=== PATIENT | female | born 1985 | race Caucasian/White ===

== ENCOUNTER 2020-07-13 17:09 | Emergency (ER) | payer OTHER ==
[~2020-07-13] VITALS: Ht 172.7 cm; Wt 93.0 kg
[2020-07-14] MEDS ORDERED: HYDROCODON-ACE1 EA10 PO (18:47)
== END 2020-07-13 22:48 | disposition home or self-care (01) ==
LOC: ED 17:09
DX: R10.2 Pelvic and perineal pain (principal); F17.200 Nicotine dependence, unspecified, uncomplicated
CPT/HCPCS: 76830; 76856; 80053; 81001; 83690; 84702; 85025; 96374; 99284-25; J1885; J7030

== ENCOUNTER 2020-07-14 17:54 | Inpatient (IN) | payer OTHER ==
[~2020-07-14] VITALS: Ht 172.7 cm; Wt 93.2 kg
--- NOTE | ~2020-07-14 | HP ---
[facility] [address], [place] [address] Draft ADMISSION DATE: 07/14/2020 CHIEF COMPLAINT: Fever and abdominal pain. HISTORY OF PRESENT ILLNESS: Ms. Schultz is a pleasant 35-year-old G3, P2-0-1-2 female who presents to the office today for ER followup. She is seen in the Urgent Care yesterday complaining of a 6-day history of waxing and waning fevers and increasing left adnexal pain. She was then sent to the emergency department where she underwent evaluation. An ultrasound was performed that demonstrated a 9.8 x 5.4 x 7.3 cm uterus with homogeneous features with endometrial thickness of 14 mm. Right ovary was normal. The left ovary was 3.9 x 2.2 x 3.8 cm with normal follicles. In the left fallopian tube, there was an anechoic fluid-filled structure measuring up to 2.3 cm in diameter with mural hyperemia with no internal echogenic material. Per the text report, this was the area of tenderness for the patient. She was afebrile with normal vital signs. No leukocytosis and generally normal labs. Quant hCG was negative. I offered evaluation in the emergency department and the ER physician felt that she could safely follow up in the office today. In reviewing records, I gained additional information and was concerned for TOA/PID and recommend the patient presents emergently for evaluation. In the office, the patient confirms 1-week history of waxing and waning fevers and increased pain. Denies vaginal discharge. The patient has not been sexually active for approximately five months and unsure of lifetime partners. History of HPV in the past but no other history of sexually transmitted diseases. GC and chlamydia testing were not performed in the emergency department yesterday. The patient also complains of five year history of abnormal uterine bleeding with regular periods lasting 5 to 7 days with extremely heavy bleeding and pain. She has clots and accidents through tampons and pads on to her bedding and clothing. She has not seen a museum assistant for at least three or four years. The patient reports a history of being diagnosed with cervical cancer and was told several years ago that she had "stage III or stage IV cervical cancer. She chose not to pursue followup and moved to [place], [place]. She has not seen a physician since. She does smoke hand rolled cigarettes at approximately 1/2 to 1 pack per day. PAST MEDICAL HISTORY: 1. Cervical cancer per the patient. 2. Chronic low back pain. CURRENT MEDICATION: [place] 5/325 per ED yesterday. PATIENT NAME: WILBERT SCHULTZ HISTORY AND PHYSICAL DATE OF : 85 REPORT #: [id number] PHYSICIAN: HALI MENDEZ DO PCP: HALI MENDEZ DO REPORT IS CONFIDENTIAL AND NOT TO BE RELEASED WITHOUT AUTHORIZATION [facility] [address] [place] [id number] Draft ALLERGIES: No known drug allergies. SURGICAL HISTORY: None. HOSPITALIZATIONS: No prior. FAMILY HISTORY: Reviewed and no pertinent family history. SOCIAL HISTORY: The patient smokes tobacco every day. Denies alcohol or drug use. Sexual activity per HPI. REVIEW OF SYSTEMS: Review of systems was performed, negative except per HPI. PHYSICAL EXAMINATION: VITAL SIGNS: Height 68 inches, weight 203 pounds. BMI 30.86. Pain 6/10. Heart rate 66 beats per minute. Blood pressure 118/78, respiratory rate 18, oxygen sat 99. GENERAL: The patient is alert, cooperative, oriented, in no distress. HEENT: Normocephalic, atraumatic with multiple piercings. NECK: Supple. Trachea midline. No thyromegaly, supraclavicular, suprascapular or other lymphadenopathy. CHEST: Normal shape and expansion. No apparent dyspnea. HEART: Regular rate and rhythm. No murmurs. RESPIRATORY: Clear to auscultation bilaterally. Regular rate and effort. No wheezes, rales, or rhonchi. ABDOMEN: Soft without hepatomegaly or splenomegaly. No obvious masses. No abdominal hernia. She does have significant left lower quadrant tenderness with guarding. No referred pain to the left lower quadrant with palpation to the quadrant. No rebound. BACK: Limited range of motion of her lumbar spine due to history of low back injury. Tender low back. Left flank tenderness to percussion. Female genitalia. Normal external genitalia with normal clitoris, urethral meatus bilateral [place]'s, and Bartholin glands. Normal perineal body and anus. Vagina is normal in caliber and length with no abnormal discharge. The cervix is quite large with extremely large squamocolumnar junction that appears hyperemic and dysplastic. Pap was performed as well as GC and chlamydia were obtained. Bimanual exam was performed, demonstrated no significant cervical motion tenderness. However, the cervix was quite firm and abnormal. No upper vaginal extension and the pelvic sidewalls and parametrium feel clear. Minimal tenderness of the right adnexa, but significant left adnexa 10/10 that reproduced her pain. Unable to palpate mass due to the patient's tenderness. PATIENT NAME: WILBERT SCHULTZ HISTORY AND PHYSICAL DATE OF : [birth year] REPORT #: [id number] PHYSICIAN: HALI MENDEZ DO PCP: HALI MENDEZ DO REPORT IS CONFIDENTIAL AND NOT TO BE RELEASED WITHOUT AUTHORIZATION [facility] [address], [place] [address] Draft RECTAL: Deferred. EXTREMITIES: No edema. The patient does walk with a cane. LABS: From ED yesterday, WBC 6.2, hemoglobin 13.7, platelets 254. CMP shows sodium 137, potassium 4.1, chloride 104, carbon dioxide 24, BUN 8, creatinine 0.61, glucose 87, AST 37, ALT 32. HCG negative. UA is negative. ASSESSMENT: 1. Left tubo-ovarian abscess. The patient with likely TOA with fluid-filled hyperemic left fallopian tube with complaint of fever and severe tenderness. Admission for parenteral antibiotics, close monitoring and pain control. Antibiotic will likely continue 48 to 72 hours and we will monitor clinical improvement largely based on symptomatic pain improvement. Should she fail IV antibiotic therapy, surgery may be indicated. We reviewed risk of rupture and resulting sepsis with possible morbidity and mortality. We reviewed indications for surgery. The patient understands and agrees to admission. I will start cefoxitin 2 g IV q.6 hours plus doxycycline 100 mg q.12 hours. We will manage pain with IV and oral pain medications including Tylenol, ibuprofen, [place] and Dilaudid as needed. Nicotine patch for tobacco. The patient is not interested in tobacco cessation. Recommended no reviewed hospital policy for COVID screen upon admission and the patient reports that she will refuse this. All questions were answered to best of my ability with the patient apparent satisfaction. 2. Cervical cancers. The patient with history of cervix cancer per report. On exam, she certainly has abnormal cervix with abnormal cervical mass concerning for early significant dysplasia. This mass greater than 2 cm, but does seem limited to the cervix proper with no spread to the upper vagina, parametrium, or pelvic sidewall. No regional or distant suspicious nodes. Pap was obtained today in the office and we will follow up as an outpatient with at least colposcopy and biopsies regardless of Pap results. Records were requested in the office for prior pathology reports management. We reviewed the role of HPV and tobacco and progression of cervical cancer. The patient understands and agrees. 3. Tobacco use. The patient with heavy tobacco use of home rolled cigarettes. Reviewed hospital policy for tobacco cessation counseling and offered nicotine patch, which the patient accepts. All questions were answered to best of my ability with patient's apparent satisfaction. Hali Mendez DO PATIENT NAME: WILBERT SCHULTZ HISTORY AND PHYSICAL DATE OF : [birth year] REPORT #: [id number] PHYSICIAN: HALI MENDEZ DO PCP: HALI MENDEZ DO REPORT IS CONFIDENTIAL AND NOT TO BE RELEASED WITHOUT AUTHORIZATION [facility] [address], [place] [address] Draft WOOD/SHAYNAL /[id number] Copies: ~ PATIENT NAME: WILBERT SCHULTZ HISTORY AND PHYSICAL DATE OF : [birth year] REPORT #: [id number] PHYSICIAN: HALI MENDEZ DO PCP: HALI MENDEZ DO REPORT IS CONFIDENTIAL AND NOT TO BE RELEASED WITHOUT AUTHORIZATION
--- NOTE | 2020-07-14 18:05 | NUR ---
PT ARRIVAL TO DEPARTMENT WITH DRAG DOWN, AMBULATING WITH CANE, HAS STEADY GAIT, DENIES DIZZINESS. PT TO ROOM 106.
--- NOTE | 2020-07-14 18:20 | NUR ---
IV STARTED, IV SL'D, L HAND 20G, PT TOLERATED WELL, PT SITTING UP IN BED ORDERED REGULAR DIET, DENIES DIZZINESS, N/V OR NEEDS.
--- NOTE | 2020-07-14 18:43 | NUR ---
RT COLLECTED COVID 19 SWAB WITH NO COMPLICATIONS. RT USED THE CEPHEID RAPID TEST THROUGH [facility] PER DR REQUEST AT THIS TIME.
--- NOTE | 2020-07-14 18:45 | NUR ---
DR. STOREY AT BEDSIDE TALKING WITH PT
[2020-07-14] MEDS ORDERED: HYDROCODON-ACE1 EA10 PO (18:47)
--- NOTE | 2020-07-14 18:50 | NUR ---
LABS DRAWN WITH IV START
--- NOTE | 2020-07-14 21:22 | NUR ---
pt appears to be sleeping soundly and in no apparent distress
--- NOTE | 2020-07-14 22:39 | NUR ---
pt resting. Denies any needs at this time and states that pain is improved.
--- NOTE | 2020-07-15 02:08 | NUR ---
scheduled abx hung. Pt denies need for pain medication at this time. Continues use of kpad to abdomen.
--- NOTE | 2020-07-15 04:48 | NUR ---
pt up to BR to void. Declines any pain medication at this time. Pt states that her back hurts but that is normal for her. Continues use of kpad to abdomen.
--- NOTE | 2020-07-15 05:43 | NUR ---
0545-1 boyce given for 11/18 lower abdominal disc.
--- NOTE | 2020-07-15 17:27 | NUR ---
0800 PT UP IN BED, NO NEEDS AT THIS TIME. VSS NO APPARENT SIGNS OF DISTRESS.
--- NOTE | 2020-07-15 17:28 | NUR ---
1010 PT UP IN BED EATING BREAKFAST, TOLERATES WELL.
--- NOTE | 2020-07-15 17:28 | NUR ---
0900 DR STOREY HERE TO DISCUSS PLAN OF CARE. PATIENT AGREEABLE AT THIS TIME.
--- NOTE | 2020-07-15 17:29 | NUR ---
1105 PT UP IN ROOM, DENIES NEEDS AT THIS TIME.
--- NOTE | 2020-07-15 17:29 | NUR ---
1215 PT RESTING, WATCHING TV. NO NEEDS INDICATED.
--- NOTE | 2020-07-15 17:30 | NUR ---
1310 PT UP AMBULATING IN ROOM, TOLERATES WELL.
--- NOTE | 2020-07-15 17:31 | NUR ---
1405 PT EATING LUNCH, TEXTING WITH FRIEND. NO NEEDS AT THIS TIME.
--- NOTE | 2020-07-15 17:31 | NUR ---
1600 PT DENIES NEEDS AT THIS TIME.
--- NOTE | 2020-07-15 17:32 | NUR ---
1730 PT ORDERS DINNER, WATCHING VIDEO'S ON PHONE.
--- NOTE | 2020-07-15 20:34 | NUR ---
2000-PM ASSESSMENT DONE. PT JUST UP TO BR TO VOID QS. IV ABX HUNG AND INFUSING PER ORDER. PT STATES SHE FEELS BETTER SINCE STARTING THE ABX. DENIES NEED FOR PAIN RX AT THIS TIME. NICORETTE GUM GIVEN PER PT REQUEST
--- NOTE | 2020-07-16 02:00 | NUR ---
0140- ABX hung and infusing per order. Pt mostly sleepy and denies need for pain rx at this time. IV site WNL
--- NOTE | 2020-07-16 05:42 | NUR ---
0530- pt resting with eyes closed. Left undisturbed.
--- NOTE | 2020-07-16 07:25 | NUR ---
Pt medicated w/ requested pain medication and nicotine gum. Fresh coffee provided.
--- NOTE | 2020-07-16 08:22 | NUR ---
Assessment done, Pt medicated w/ scheduled abx and nicotine patch. fresh coffee provided, no further needs voiced.
--- NOTE | 2020-07-16 10:23 | NUR ---
PT UP AROUND ROOM, NEW BAG OF NORMAL SALINE HUNG. BREAKFAST TRAY CLEARED. NO FURTHER NEEDS VOICED.
--- NOTE | 2020-07-16 12:48 | NUR ---
pt resting in bed. vss. additional nicotine gum provided. no further needs voiced.
--- NOTE | 2020-07-16 14:33 | NUR ---
pt medicated w/ requested pain medication, nicotine gum and scheduled abx. fresh towels and gown provided, pt reports she will shower. lunch tray cleared.
--- NOTE | 2020-07-16 16:16 | NUR ---
pt resting in bed. Vitals done. Fresh ice water provided. Pt denies any further needs at this time.
--- NOTE | 2020-07-16 16:26 | NUR ---
SPOKE WITH DR STOREY REGARDING MOVING PT TO MEDICAL FLOOR FOR CONTINUED IV THERAPY. ORDER TO GO AHEAD AND DO SO. [facility] NURSES AWARE.
--- NOTE | 2020-07-16 16:54 | NUR ---
SHIFT REPORT RECIEVED BY CELINA KATZ FROM [facility]. PT TRANSFERED TO MED SURG. VS STABLE. PT STATES PAIN 11/18. TOLERABLE. ASSESSMENT COMPLETE. INDEPENDENT. ACTIVE BOWEL TONES.
--- NOTE | 2020-07-16 17:21 | NUR ---
PATIENT IS SITTING UP IN BED. AT BEDSIDE. VITALS AND I&OS ARE DONE AND DOCUMENTED. CALL LIGHT IS IN REACH. NO FURTHER NEEDS AT THIS TIME.
--- NOTE | 2020-07-16 17:23 | NUR ---
CALLED DR STOREY REGARDING 14MG NICOTINE PATCH. PT WITH S/S OF ANXIETY AND AGITATION. ORDERS RECIEVED TO INCREASE NICOTINE PATCH TO 21MG DAILY. ORDERS READ BACK.
--- NOTE | 2020-07-16 18:56 | NUR ---
REMOVED 14MG NICOTINE PATCH FROM RIGHT SHOULDER. ADMINISTERED 21MG NICOTINE ON LEFT SHOULDER. PT ATE 100% OF MEAL. IV FLUIDS INFUSING 75ML/HR.
--- NOTE | 2020-07-16 19:20 | NUR ---
SHIFT REPORT RECEIVED FROM DAYSHIFT CELINA SPANGLER AND YVONNE AT BEDSIDE, pt AWAKE AND RESTING IN BED. INDEPENDENT IN ROOM, RECENTLY VOIDED. IV FLUIDS INFUSING PER MD ORDERS. NICOTINE GUM GIVEN BY CELINA SPANGLER, NO FURTHER NEEDS AT THIS TIME. CALL LIGHT IN REACH.
--- NOTE | 2020-07-16 20:06 | NUR ---
ROUNDED CHARGE. VITAL SIGNS COMPLETE, STABLE. pt REQUESTING PRN PAIN MEDICATIONS, CELINA BLEVINS IN ROOM. pt DENIES ADDITIONAL NEEDS, RESTING IN BED WATCHING TV. CALL LIGHT IN REACH.
--- NOTE | 2020-07-16 20:26 | NUR ---
ASSESSMENT COMPLETE, SCHEDULED MEDS GIVEN (SEE EMAR). pt AWAKE AND RESTING IN BED, COMPLIANT WITH CARE AND INTERACTIVE WITH FOOD EDITOR. IV ABX HUNG AND INFUSING PER MD ORDERS, IV SITE WNL. BRISK BLOOD RETURN NOTED. PRN NORCO GIVEN FOR 6/10 PAIN R/T ABD CRAMPING. DENIES NAUSEA. NO FURTHER NEEDS, CALL LIGHT IN REACH. VS AND I&O'S COMPLETE AND STABLE.
--- NOTE | 2020-07-16 23:22 | NUR ---
NEW BAG IV FLUIDS HUNG, NS INFUSING AT 75MLS/HR, SITE WNL. TIOLET HAT EMPTIED, NO FURTHER NEEDS VERBALIZED. CALL LIGHT IN REACH.
--- NOTE | 2020-07-17 01:28 | NUR ---
pt RESTING IN BED WITH EYES CLOSED, RR EVEN AND UNLABORED. NO DISTRESS OR SIGNS OF PAIN NOTED. WILL CONTINUE TO MONITOR, CALL LIGHT IN REACH.
--- NOTE | 2020-07-17 02:08 | NUR ---
IV ABX HUNG AND INFUSING PER MD ORDERS, IV SITE WNL. pt RESTING IN BED WITH EYES CLOSED. RR EVEN AND UNLABORED. CALL LIGHT IN REACH.
--- NOTE | 2020-07-17 05:26 | NUR ---
ASSESSMENT COMPLETE, NO NEW CHANGES OR CONCERNS. pt AWOKE TO VOICE, REPORTS 6/10 PAIN, PRN MOTRIN GIVEN (SEE EMAR). DENIES NAUSEA, NICOTINE GUM PROVIDED PER pt REQUEST. NO ADDITIONAL NEEDS VERBALIZED, IV FLUIDS INFUSING PER MD ORDERS. IV SITE WNL. CALL LIGHT IN REACH. VS AND I&O'S COLLECTED BY VALDEMAR CASTRO.
--- NOTE | 2020-07-17 06:19 | NUR ---
CALL LIGHT ANSWERED. pt SPILLED WATER, CLEANED UP WITH TOWELS. NEW WATER CUP PROVIDED WITH ICE WATER. pt EMOTIONAL, CRYING. DISCUSSING WITH THIS RN CONCERNS FOR MOVING FORWARD, POTENTIAL SURGERY, HAVING TWO DAUGHTERS AT HOME A SINGLE MOM. pt IS REQUESTING SOMETHING FOR ANXIETY. DENIES PAIN MEDICATION AT THIS TIME "I JUST WOKE UP AND WOULD LIKE TO WAIT A WHILE". PRIMARY RN NOTIFIED OF pt CONCERNS, REQUESTS. BP REASSESSED, 101/76 (81). CALL LIGHT IN REACH.
--- NOTE | 2020-07-17 06:39 | NUR ---
pt AWAKE AND IN BED, TEARFUL AND REPORTS FEELINGS OF ANXIETY REGARDING HOSPITALIZATION/DIAGNOSIS. UPDATED DR STOREY REGARDING pt CONDITION, TELEPHONE ORDER READ BACK FOR 25MG [place] ONE TIME DOSE TO GIVE NOW. ORDER PLACED IN EMAR.
--- NOTE | 2020-07-17 07:14 | NUR ---
PT SITTING UP IN BED. SHIFT REPORT RECIEVED BY RN. CALL LIGHT IN REACH.
--- NOTE | 2020-07-17 08:01 | NUR ---
PT SITTING UP IN BED. SCHEDULED MEDS GIVEN. PT C/O PAIN 10/19. PRN PAIN MED GIVEN PER REQUEST. ASSESSMENT COMPLETE. NICOTINE PATCH REPLACED. CALL LIGHT IN REACH.
--- NOTE | 2020-07-17 08:51 | NUR ---
PT C/O NAUSEA. ZOFRAN ADMINISTERED. DR STOREY IN ROOM. STATES THAT HE WILL RETURN SHORTLY. CALL LIGHT IN REACH.
--- NOTE | 2020-07-17 09:32 | NUR ---
PATIENT IS SITTING UP IN HER CHAIR WATCHING TV ON HER TABLET. FRESH ICE WATER OFFFERED. CALL LIGHT IS IN REACH. NO FURTHER NEEDS AT THIS TIME.
[2020-07-17] MEDS ORDERED: FLAGYL500 MG PO (09:36)
[2020-07-17] MEDS ORDERED: DOXYCYCLINE HY100 MG PO (09:37)
[2020-07-17] MEDS ORDERED: HYDROCODON-ACE1 EA10 PO (09:39)
[2020-07-17] MEDS ORDERED: IBUPROFEN800 MG PO (09:41)
--- NOTE | 2020-07-17 10:07 | NUR ---
ORDERS RECIEVED BY MD FOR DISCHARGE. PAPERWORK READY. PHARMACY IN ROOM. PT STATES THAT SHE WILL BE DRIVING HERSELF HOME.
--- NOTE | 2020-07-17 10:49 | NUR ---
PT WAS GIVEN DISCHARGE PAPERWORK. EDUCATION GIVEN OF WHEN TO SEE MD FOR THE NEXT FOLLOW UP, S/S TO WATCH FOR AND DIAGNOSIS. PT VERBALIZED UNDERSTANDING. PT STATES THAT SHE UNDERSTANDS ALL MEDICATIONS AND SIDE EFFECTS. DOES NOT HAVE FURTHER QUESTIONS. IV REMOVED, CATH INTACT. EDUCATION GIVEN TO PT ON HOW SHE SHOULD WAIT 4HRS TO LEAVE DUE TO NARCOTIC BEING GIVEN 2 HOURS AGO. PT REFUSED AND STATES THAT SHE UNDERSTANDS BUT WOULD LIKE TO LEAVE NOW. AMA PAPERWORK GIVEN. PT VERBALIZED UNDERSTANDING ON THE RISKS THAT COULD OCCUR WHILE DRIVING ON HER OWN.
--- NOTE | 2020-07-17 15:03 | NUR ---
Attempted to see pt x 2 she was in the shower and then speaking with [facility]. When I returned she had dischargbed.
== END 2020-07-17 10:35 | disposition home or self-care (01) | DRG 759 ==
LOC: FBC 17:54 → MS 07-16 16:45
PROVIDERS: ADMIT Obstetrics & Gynecology; ATTEND Obstetrics & Gynecology
DX: N70.93 Salpingitis and oophoritis, unspecified (principal); Z20.822 Contact with and (suspected) exposure to COVID-19; F17.210 Nicotine dependence, cigarettes, uncomplicated; G89.29 Other chronic pain; M54.5 Low back pain; C53.9 Malignant neoplasm of cervix uteri, unspecified
CPT/HCPCS: 36415; 80053; 83605; 85025; 99406; C9803; J0694; J2405; J7030; Q0177; U0003

== ENCOUNTER 2021-02-12 20:09 | Inpatient (IN) | payer OTHER ==
[~2021-02-12] VITALS: Ht 172.7 cm; Wt 89.5 kg
[~2021-02-12 20:09] MED LIST: DOXYCYCLINE HY100 MG PO; FLAGYL500 MG PO; HYDROCODON-ACE1 EA10 PO; IBUPROFEN800 MG PO
--- NOTE | 2021-02-13 02:34 | NUR ---
INITIAL ASSESSMENT COMPLETED. PT RESPONDS TO TOUCH BUT NOT VOICE. LAYING ON LEFT SIDE, FIGHTS AGAINST THIS RN, WHEN TRYING TO CONCRETE BATCH PLANT OPERATOR IV FLUIDS AND ON AWAKE COUNSELOR. MOANING AND THRASHING WHEN MOVED IN BED. PRN HALDOL GIVEN AT THIS TIME (SEE EMAR). HEART RATE 270=287 WITH MOVEMENT, INTO THE 90S WHEN RESTING. SPO2 = 98% ON ROOM AIR. RESPIRATIONS EVEN AND UNLABORED. BLOOD PRESSURES WNL. SHARMA CATHETER DRAINING CLEAR YELLOW URINE. IV ABX INFUSING, PRN TYLENOL GIVEN FOR FEVER. BOYFRIEND AT BEDSIDE. BED ALARM IN PLACE. WILL CONTINUE TO CLOSELY MONITOR.
--- NOTE | 2021-02-13 03:35 | NUR ---
PT CONT TO REST IN BED WITH BOYFRIEND AT BEDSIDE. HR 100-105. VANCO COMPLETED AND IVF INFUSING.
--- NOTE | 2021-02-13 04:17 | NUR ---
pt rolled onto back. pulled off leads. replaced leads at this time. heart rate 90s. spo2 =98 percent. lung sounds remain unchanged. iv fluids infusing. will continue to monitor.
--- NOTE | 2021-02-13 05:23 | NUR ---
lab in room to draw blood
--- NOTE | 2021-02-13 05:59 | NUR ---
PT MORE RESPONSIVE, ANSWERING SOME QUESTIONS. STATES " IM COLD." AND "I HAVE A HEADACHE" ATTEMPTING TO FOLLOW SOME COMMANDS, BUT DRIFTS OFF TO SLEEP.
--- NOTE | 2021-02-13 06:55 | NUR ---
PTS BOYFRIEND CALLS TO STATE PT HAS BEEN CRYING ABOUT CATHETER, PT CRYING STATING "PLEASE TAKE IT OUT, I HAVE TO PEE, PLEASE TAKE IT OUT." CALL TO DR PLACIDO CAMPBELL MD TO REPORT MG LEVEL THIS AM AND PT PAIN WITH CATHETER. ORDER GIVEN FOR MG REPLACEMENT AND DC CATHETER. CATHETER DCD WITH 10CC WATER OUT OF BALLOON INTACT, PT CALMS AND SETTTLES DOWN BACK TO SLEEP.
--- NOTE | 2021-02-13 07:24 | NUR ---
IN TO START MAGNESIUM, PT IS CRYING WITH 10/10 HEAD PAIN, STATES SHE HAS A HISTORY OF SPINAL MENINGITIS AND THIS FEELS THE SAME. 15MG IV TORADOL GIVEN, PT THEN C/O NAUSEA, 4MG IV ZOFRAN GIVEN. CALL TO DR CAMPBELL TO UPDATE HIM, ADDITOINAL DOSE OF TORADOL ORDERED AND PLAN FOR LUMBAR PUNCTURE.
--- NOTE | 2021-02-13 07:29 | NUR ---
WARP KNITTING MACHINE OPERATOR NOTIFIED OF ORDER FOR LUMBER PUNCTURE.
--- NOTE | 2021-02-13 08:01 | NUR ---
PATIENT ASSESSMENT COMPLETE. MEDICATIONS GIVEN ORDERED. PATIENT IS ALERT AND ORIENTED X3. PATIENT PUPILS ARE REACTIVE AND 3MM IN SIZE. PATIENT COMPLAINS OF A 9/10 HEADACHE THAT SHE FEELS BEHIND HER EYES. PATIENT LUNG SOUNDS ARE CLEAR THROUGHOUT. BREATHING ARE UNLABORED AND EQUAL. RR IS 20. HEART SOUNDS ARE WNL AND PATIENT IS IN A SINUS RHYTHM. 65 BPM. PATIENT HAS NOT HAD ANY URINE SINCE SHARMA CATH WAS DC'D THIS MORNING. NO BM THIS MORNING BOWEL SOUNDS ARE ACTIVE. PATIENT DENIES FEELING HUNGRY. FEVER IS 99.9 AND SHE STATES "I AM SO COLD." PATIENT UPDATED ON PLAN OF CARE. BOYFRIEND AT BEDSIDE. NO QUESTIONS AT THIS TIME. CALL LIGHT WITHIN REACH NO FUTHER NEEDS.
--- NOTE | 2021-02-13 08:45 | NUR ---
PATIENT NEEDED IV SITE DC'D. TWO IV SITES PLACED. D5LR RUNNING AT 100 MLS/HR. PATIENT TOLERATED IT WELL. PATIENT STATES " I AM STARTING TO FEEL BETTER BUT STILL HAVE A HEADACHE. BOYFRIEND AT BEDSIDE. CALL LIGHT WITHIN REACH NO FUTHER NEEDS.
--- NOTE | 2021-02-13 11:09 | NUR ---
MED REC COMPLETE
--- NOTE | 2021-02-13 11:56 | NUR ---
PATIENT ASSESSMENT COMPLETE. MEDICATION GIVEN ORDERED. PATIENT IS SITTING UP IN BED. PATIENT IS ALERT AND ORIENTED X4. PUPILS ARE EQUAL AND REACTIVE. PATIENT LUNG SOUNDS ARE CLEAR THROUGHOUT. BREATHING IS EQUAL AND UNLABORED. RR IS 18. OXYGEN SATURATION IS 98% ON ROOM AIR. HEART SOUNDS ARE WNL. HEART RATE IS 67 BPM AND IN A SINUS RYHTHM. URINE OUTPUT IS YELLOW AND CLEAR. NO BM TODAY. BOWEL TONES ARE ACTIVE. PATIENT DENIES PAIN AT THIS TIME. PATIENT UPDATED ON PLAN OF CARE. NO QUESTIONS AT THIS TIME. BOYFRIEND PRESENT AT BEDSIDE. CALL LIGHT WITHIN REACH NO FUTHER NEEDS.
--- NOTE | 2021-02-13 13:45 | NUR ---
PATIENT USED CALL LIGHT TO REQUEST PAIN MED FOR HEADACHE. RN NOTIFIED. CALL LIGHT IN REACH. YENIED IN ROOM
--- NOTE | 2021-02-13 15:30 | NUR ---
LUMBAR PUNCTURE COMPLETE. PATIENT TOLLERATED IT WELL. [place] COMPLETED. PATIENT COMPLAINS OF 10/10 PAIN IN THE HEAD AND NECK. PATIENT IS LAYING FLAT IN BED. CALL LIGHT IN REACH NO FUTHER NEEDS.
--- NOTE | 2021-02-13 15:55 | NUR ---
PATIENT ASSESSMENT COMPLETE. MEDICATIONS GIVEN ORDERED. PATIENT IS ALERT AND ORIENTED X4. PATIENT LUNG SOUNDS ARE CLEAR THROUGHOUT. BREATHING IS EQUAL AND UNLABORED. RR IS 14. PATIENT HEART SOUNDS ARE WNL. HEART RATE IS 68 BPM AND IN SINUS RHYTHM. URINE OUTPUT IS YELLOW AND CLEAR. NO BM TODAY AND BOWEL TONES ARE ACTIVE. PATIENT STILL IS IN 10/10 PAIN FROM THE HEAD AND NECK. PRN TYLENOL GIVEN. PATIENT IS LAYING FLAT IN BED WITH THE LIGHTS OFF. PATIENT IS UPDATED ON PLAN OF CARE. NO QUESTIONS AT THIS TIME. CALL LIGHT WITHIN REACH NO FUTHER NEEDS.
--- NOTE | 2021-02-13 16:07 | NUR ---
STAFF SUGGESTS TALKING WITH PATIENT TOMORROW SHE IS TOO ILL FOR PHONE CONVERSATION TODAY.
--- NOTE | 2021-02-13 17:35 | NUR ---
DR. CAMPBELL UPDATED ON PATIENT LAB RESULTS THAT ARE RECIEVED. PATIENT IS IN 10/10 PAIN IN THE HEAD AND NECK. PATIENT IS LAYING FLAT IN BED. ORDERS PENDING. CALL LIGHT WITHIN REACH OF PATIENT NO FUTHER NEEDS.
--- NOTE | 2021-02-13 19:30 | NUR ---
REPORT RECEIVED FROM DAY SHIFT RN. PT IN ROOM WITH BOYFRIEND, NO REQUESTS AT THIS TIME.
--- NOTE | 2021-02-13 19:51 | NUR ---
IN TO DO ASSESSMENT AND VS. PT RATES PAIN IN HEAD AND NECK 08/19 BUT STATES OVERALL IT IS MUCH BETTER. LUNGS DIM/CLEAR. IVF INFUSING AT 100ML/HR.
--- NOTE | 2021-02-13 20:50 | NUR ---
IN TO START IV VANCO. DISCUSSED PLAN OF CARE FOR THE NIGHT WITH PT. PT HAS QUESTIONS CONCERNING LAB RESULTS FROM TO DAY, WILL INFORM DR. SKY PEREZ, DIRECTOR OF INVESTIGATIONS NOTED.
--- NOTE | 2021-02-13 21:07 | NUR ---
PT REQUESTING NICORETTE GUM. WILL LOOK INTO THE MATTER.
--- NOTE | 2021-02-13 21:13 | NUR ---
PTS LAB RESULTS REPORTED TO HER.
--- NOTE | 2021-02-13 22:00 | NUR ---
NICORETTE GIVEN TO PT, AND LATER SHE REPORTS FEELING RELIEF.
--- NOTE | 2021-02-14 02:00 | NUR ---
PT CALLED TO ASK FOR MOTIRIN, IN TO GIVE PILLS TO PT AND FOUND HER VOMITTING INTO GARBAGE CAN. HELD MOTRIN AND 4MG IV ZOFRAN GIVEN. SHE FINISHED VOMITING AND LAID BACK DOWN IN BED, STATED SHE WILL CALL IF NAUSEA DOES NOT GET BETTER.
--- NOTE | 2021-02-14 04:04 | NUR ---
IN TO CHECK ON PT, SHE STATES SHE FEELS A LITTLE LESS NAUSEATED, BUT DID HAVE ANOTHER EMESIS APPROX 10 MINUTES AGO AND THAT SHE HAS BEEN HAVING A HARD TIME SLEEPING BECAUSE OF IT. PT IS DIAPHORETIC/CLAMMY. ORAL TEMP IS 98.7. 12.5 MG IV PHENERGAN GIVEN. PT INSTRUCTED ON MEDICATION AND WILL CALL IF SHE DOESNT FEEL BETTER SOON.
--- NOTE | 2021-02-14 04:15 | NUR ---
12.5MG IV PHENERGAN GIVEN FOR CONTINUED NAUSEA.
--- NOTE | 2021-02-14 05:00 | NUR ---
PT RESTFUL, RESP EVEN AND UNLABORED.
--- NOTE | 2021-02-14 06:30 | NUR ---
PT CONTINUES TO BE SLEEPING/RESTFUL WITH EVEN UNLABORED RESP. RR 16, HR 80'S.
--- NOTE | 2021-02-14 07:00 | NUR ---
IV PUMP INDICATES DISTAL OCCLUSION. UPON IRRIGATION OF IV SITE, UNABLE TO IRRIGATE. IVF TO OFF FOR NOW. WILL RESTART IV LATER. PATIENT IS AWARE.
--- NOTE | 2021-02-14 08:35 | NUR ---
20 GA IV STARTED TO R HAND. PATIENT TOLERATED IV START WELL. IVF NOW INFUSING.
--- NOTE | 2021-02-14 09:17 | NUR ---
PATIENT ASSESSMENT COMPLETE. MEDICATIONS GIVEN ORDERED. PATIENT IS ALERT AND ORIENTED X4. LUNG SOUNDS ARE CLEAR THROUGHOUT. BREATHING IS EQUAL AND UNLABORED. OXYGEN SATURATION WAS 100% ON ROOM AIR. RR IS 20. PATIENT HEART RATE IS 85 BPM AND IN SINUS RHYTHM. HEART SOUNDS ARE WNL. PATIENT URINE IS YELLOW AND CLEAR. NO BM TODAY. PATIENT SAYS HER HEAD IS A 5/10 PAIN RESTING BUT IF SHE MOVES HER HEAD AND NECK IT IS 10/10. PATIENT TEMP IS 99.4. WILL CONTINUE TO MONITOR. MOTRIN GIVEN THIS AM. ASKED PATIENT IF WANTED ANY TYLENOL AND REFUSED AT THIS TIME. PATIENT IS DIAPHORETIC AND REQUESTING NICTONE GUM. PATIENT UPDATED ON PLAN OF CARE. BOYFRIEND PRESENT IN ROOM CALL LIGHT WITHIN REACH NO FUTHER NEEDS.
--- NOTE | 2021-02-14 11:00 | NUR ---
PT ARRIVED TO THE MEDSURG FLOOR FROM THE CCU VIA BED. PT C/O 10/10 PAIN IN NECK AND HEAD, PRN PAIN AND NAUSEA MEDS GIVEN PER PT REQUEST/PROVIDER ORDER. ASSESMENT COMPLETE, PT DENIES ANY OTHER NEEDS AT THIS TIME.
--- NOTE | 2021-02-14 11:00 | NUR ---
PATIENT WAS TRANSFERRED TO THE MEDICAL SURGICAL FLOOR. REPORT GIVEN TO CELINA HOWARD. PATIENT WAS MOVED BY CHAIR TO THE FLOOR. MASK ON. PATIENT DENIED ANY PAIN WITH MOVE. BREATHING WAS EQUAL AND UNLABORED. PATIENT TOLERATED MOVE WELL.
--- NOTE | 2021-02-14 12:30 | NUR ---
PT SITTING UP IN BED W/ CALL LIGHT IN REACH AND S.O. AT BEDSIDE. PT OFFERED COVID SWAB, PT STATES SHE WOULD LIKE TO THINK ABOUT IT. IV VANCO HUNG AND INFUSING PER PROVIDER ORDER. PT DENIES ANYOTHER NEEDS AT THIS TIME.
--- NOTE | 2021-02-14 13:44 | NUR ---
PATIENT REFUSED TO HAVE A COVID SWAB.
--- NOTE | 2021-02-14 14:27 | NUR ---
PT RESTING IN BED SAFELY W/ CALL LIGHT IN REACH AND EYES CLOSED, RR EVEN AND UNLABORED.
--- NOTE | 2021-02-14 16:37 | NUR ---
PT RESTING SAFELY IN BED W/ CALL LIGHT IN REACH AND EYES CLOSED, RR EVEN AND UNLABORED. SO IN ROOM ASLEEP ON THE COUCH
--- NOTE | 2021-02-14 18:07 | NUR ---
PT RESTING IN BED SAFELY W/ CALL LIGHT IN REACH, PT HAS DINNER IN ROOM BUT WANTS TO WAIT TO EAT SHE IS STILL SLIGHTLY NAUSEOUS.
--- NOTE | 2021-02-14 19:15 | NUR ---
RECEIVED REPORT ON PT, CALL LIGHT IS CLOSE.
--- NOTE | 2021-02-14 21:05 | NUR ---
IN ROOM TO ASSESS PT AND ADMINISTER MEDICATIONS. PT REPORTS PAIN 9/10 IN HEAD AND NECK. ADMINISTERED 10MG OXYCODONE. PT REPORTS NAUSEA AND LIGHT SENSITIVITY. TOO SOON TO ADMINISTER ZOFRAN AND NOT WANTING TO RISK LOOSING L HAND IV BY ADMINISTERING PHENERGAN. PT WOULD LIKE TO SHOWER AFTER IV ABX ARE COMPLETE. PT DENIES FURTHER NEEDS AND CALL LIGHT IS CLOSE.
--- NOTE | 2021-02-14 22:00 | NUR ---
ROTATED PT ANTIBIOTIC. PT MOSTLY SLEEPY, TURNED. NO OTHER NEEDS AT THIS TIME. FRIEND AT BEDSIDE.
--- NOTE | 2021-02-14 23:29 | NUR ---
PT IS RESTING WITH EYES CLOSED, RR IS EVEN AND NONLABORED. CALL LIGHT IS CLOSE. BOYFRIEND IN ROOM.
--- NOTE | 2021-02-15 00:04 | NUR ---
PATIENT IS NOW SL. PATIENT PROVIDED WITH TOWELS AND SOAP TO SHOWER. IV COVERED. PATIENT IS NOW IN SHOWER.
--- NOTE | 2021-02-15 01:30 | NUR ---
PT IS RESTING WITH EYES CLOSED, RR IS EVEN AND NONLABORED. CALL LIGHT IS CLOSE. SIG OTHER SLEEPING IN ROOM.
--- NOTE | 2021-02-15 03:33 | NUR ---
PT IS RESTING WITH EYES CLOSED, RR IS EVEN AND NONLABORED. CALL LIGHT IS CLOSE.
--- NOTE | 2021-02-15 04:35 | NUR ---
IN ROOM TO START IV ABX. PT REPORTS PAIN 3/10 HEADACHE WITH VERY LITTLE STIFFNESS IN HER NECK. SHE DENIES NEED FOR PAIN MEDS AND DENIES NAUSEA. PT'S SIG OTHER IS IN THE ROOM AND IS VERY HELPFUL WITH HER CARE. FRESH ICE AND ICEWATER PROVIDED. PT DENIES FURTHER NEEDS AT THIS TIME. CALL LIGHT IS CLOSE AND IV IS INFUSING FINE.
--- NOTE | 2021-02-15 05:01 | NUR ---
AFTER LEAVING PT'S ROOM SHE CALLED TO SAY HER HEADACHE IS BACK AT 9/10 AND FEELS NAUSEOUS. ADMINISTERED IV ZOFRAN SLOW PUSH AND DILUTED AND 10MG PO OXYCODONE FOR PAIN. PT DENIES FURTHER NEEDS AT THIS TIME. CALL LIGHT IS CLOSE.
--- NOTE | 2021-02-15 06:00 | NUR ---
WAS NOTIFIED BYBECKY RN THAT PT'S IV INFILTRATED, IT PREVIOUSLY HAD GREAT BLOOD RETURN WHEN STARTING IV VANCO AND PT STATED SHE COULD "TASTE THE SALINE". RN WILL USE US TO START MIDLINE. THIS RN SENT NOTE TO DR CAMPBELL TO NOTIFY HIM OF PT REPORTING NAUSEA AND INCREASED HEADACHE AFTER VANCO STARTED.
--- NOTE | 2021-02-15 06:08 | NUR ---
WAS UNABLE TO SEE PATIENT YESTERDAY WHEN CHECKED ON. PATIENT WAS NAUSEATED AND HAD SEVERE HEADACHE. ANOTHER TIME WAS SLEEPING. WILL TRY TO SEE TODAY.
--- NOTE | 2021-02-15 08:00 | NUR ---
Pt resting safely in bed w/ call light in reach and eyes closed, RR even and unlabored, SO at bedside.
--- NOTE | 2021-02-15 10:00 | NUR ---
PT RESTING IN BED SAFELY W/ CALL LIGHT IN REACH PT C/O 12/19 PAIN IN HEAD AND NECK, PRN TYLENOL GIVEN PER REQUEST, IV ABX HUNG AND INFUSING PER PROVIDERS ORDERS, MORNING ASSESMENT COMPLETED. PT GIVEN SPRITE UPON REQUEST, DENIES ANY OTHER NEEDS AT THIS TIME.
--- NOTE | 2021-02-15 10:50 | NUR ---
PT C/O NAUSEA, SMALL AMOUNT OF EMESIS. PRN ZOFRAN GIVEN PER REQUEST.
--- NOTE | 2021-02-15 12:30 | NUR ---
PT RESTING IN BED SAFELY, STATES NAUSEA HAS IMPROVED W/ PRN ZOFRAN, IV VANCO HUNG AND INFUSING PER PROVIDER ORDERS
--- NOTE | 2021-02-15 14:00 | NUR ---
PT RESTNG AT THIS TIME, CALL LIGHT IN REACH, EYES CLOSED, RR EVEN AND UNLABORED
--- NOTE | 2021-02-15 16:00 | NUR ---
PT REPORT NAUSEA AND EMESIS, EMESIS BAG IN GARBAGE MINIMAL EMESIS NOTED. PT DENIES NEED FOR NAUSEA MEDS JUST ASKS FOR SPRITE AND ICE CHIPS
--- NOTE | 2021-02-15 16:04 | NUR ---
STAFF STATES PATIENT IS NOT UP TO PHONE CALLS. CLEARANCE CENTER MANAGER STATES PATIENT PLANS TO GO HOME AT DISCHARGE WITH BOYFRIEND. STATES PATIENT AND HE DENY NEEDS TO DISCHARGE SAFELY HOME. WILL TRY TO SEE TOMORROW IF UP TO VISIT.
--- NOTE | 2021-02-15 18:00 | NUR ---
LAB IN ROOM ATTEMPTING TO DRAW BLOOD, UNSUCESSFUL, CHARGE NURSE YVONNE ABLE TO DRAW LABS AND SEND
--- NOTE | 2021-02-15 19:22 | NUR ---
RECEIVED REPORT FROM CELINA HOWARD. DID NOT ENTER ROOM DUE TO PRECAUTIONS.
--- NOTE | 2021-02-15 21:03 | NUR ---
IN TO DO ASSESSMENT. pt DENIES NAUSEA AND PAIN AT THIS TIME. SPINAL TAP SITE ASSESSED, TENDER, NO REDNESS OR SWELLING NOTED, BANDAID CDI. MIDLINE FLUSHES WELL, IV INFUSING. LUNGS CLEAR. pt REQUESTS FOOD. BOYFRIEND AT BEDSIDE. CALL LIGHT WITHIN REACH.
--- NOTE | 2021-02-15 21:40 | NUR ---
MAREPKAYE COMPLETED, LENYO STARTED, SLOWED PER pt REQUEST. pt DENIES PAIN AND NAUSEA AT THIS TIME. CALL LIGHT WITHIN REACH.
--- NOTE | 2021-02-15 22:11 | NUR ---
ROUNDED ON pt. REPORTED BURNING IN IV SITE. FLUSHES WELL, BLOOD RETURN NOTED. RUNNING CONCURRENT WITH SALINE. pt REPORTS THE BURNING IS DECREASED. pt VOIDED LIGHT YELLOW URINE. NO PAIN OR NAUSEA AT THIS TIME. CALL LIGHT WITHIN REACH.
--- NOTE | 2021-02-16 00:11 | NUR ---
IV INFUSION COMPLETED. pt PREPPED TO SHOWER INDEPENDENTLY. BOYFRIEND AT BEDSIDE. CALL LIGHT WITHIN REACH.
--- NOTE | 2021-02-16 05:00 | NUR ---
IN TO GIVE MEDICATION. pt WOKE TO VOICE. REPORTED HAVING SLEPT WELL AFTER SHOWER. REPORTED A "MILD" HEADACHE PRN GIVEN, ASKED FOR ORAL PAIN MEDICATION GIVEN. INFUSION STARTED. pt REPORTS SHE PLANS TO GO HOME TODAY WILL FINISH THIS DOSE OF ANTIBIOTICS FIRST. EDUCATED ON IMPORTANCE OF FINISH ANTIBIOTIC COURSE. pt AGREEABLE TO STAY UNTIL DAYSHIFT ARRIVES. CALL LIGHT WITHIN REACH.
--- NOTE | 2021-02-16 06:11 | NUR ---
CALL LIGHT ON. IV PUMP BEEPING, ERROR RESOLVED. pt REPORTED "I JUST FEEL A LOT WORSE." DISCUSSED TREATMENT OPTIONS. ICE PACK GIVEN. IV INFUSION SLOWED PER pt REQUEST. RASH NOTED BILAT TO KNEES NO OTHER AREAS NOTED ON ASSESSMENT OF SKIN. CALL LIGHT WITHIN REACH.
--- NOTE | 2021-02-16 06:52 | NUR ---
CALL LIGHT ON. PUMP BEEPING, ERROR RESOLVED. pt REPORTED THAT THE ICE PACK HAS GREATLY IMPROVED HER HEADACHE. CALL LIGHT WITHIN REACH.
--- NOTE | 2021-02-16 07:42 | NUR ---
Patient resting in bed awake, alert and oriented x4. Patient reports she has no current needs. Personal supplies and call light within reach.
--- NOTE | 2021-02-16 10:39 | NUR ---
Patient left against medical advice. AMA paperwork completed; signature obtained from pt. Patient reports to this RN she needs to go home to her small child and she fully understands her risks to leaving the hospital. Patient reports she will be back when she can.
--- NOTE | 2021-02-16 11:47 | NUR ---
WHEN INQUIRING ABOUT PT-CELINA RUSSELL INFORMED ME PT HAS JUST LEFT A.M.A.
[2021-02-17] MEDS ORDERED: AUGMENTIN 875-1 EACH PO ×2 (09:00→09:02)
--- NOTE | 2021-02-17 10:47 | NUR ---
PT CALLED AND NOTIFIED THAT SHE HAS AN ABX RX TO INSURANCE BILLER AT [facility]. PT REPORTS SHE HAD ALSO GOTTEN A TEXT ABOUT IT AND WILL F/U WITH HER PCP.
== END 2021-02-16 10:40 | disposition left against medical advice (07) | DRG 871 ==
LOC: ED 20:09 → CCU 02-13 00:53 → MS 02-14 11:00
PROVIDERS: ADMIT Internal Medicine; ATTEND Internal Medicine
PROC: 009U3ZX Drainage of Spinal Canal, Percutaneous Approach, Diagnostic (ICD-10-PCS; principal; 2021-02-13)
DX: A41.3 Sepsis due to Hemophilus influenzae (principal); G93.41 Metabolic encephalopathy; G00.0 Hemophilus meningitis; R65.20 Severe sepsis without septic shock; F17.210 Nicotine dependence, cigarettes, uncomplicated; Z79.899 Other long term (current) drug therapy; Z53.29 Procedure and treatment not carried out because of patient's decision for other reasons
CPT/HCPCS: 51701; 62270; 70450; 71045; 74177; 80048; 80053; 80202; 81001; 82945; 83605; 83690; 83735; 84157; 84703; 85007; 85025; 87040; 87070; 87075; 87205; 89051; 99285-25; A9270; J0692; J0696; J1630; J1885; J2405; J2550; J3370; J3475; J3480; J7030; J7060; J7120; J7121; Q9967; U0003